=== PATIENT | male | born 1995 | race Caucasian/White ===

== ENCOUNTER 2021-02-10 12:22 | Emergency (ER) | payer OTHER ==
[~2021-02-10] VITALS: Ht 177.8 cm; Wt 72.6 kg
[2021-02-10] MEDS ORDERED: VIBRAMYCIN HYC100 MG PO (13:56)
== END 2021-02-10 13:59 | disposition home or self-care (01) ==
LOC: ED 12:22
DX: S61.412A Laceration without foreign body of left hand, initial encounter (principal); W22.8XXA Striking against or struck by other objects, initial encounter; Y93.89 Activity, other specified; Y92.89 Other specified places as the place of occurrence of the external cause; Y99.8 Other external cause status